=== PATIENT | female | born 1995 | race Hispanic/Latino ===

== ENCOUNTER 2025-01-11 21:36 | Emergency (ER) | payer SELFPAY ==
[~2025-01-11] VITALS: Ht 170.2 cm; Wt 78.9 kg
[2025-01-11] MEDS: LACTATED RINGERS 1000ML IV STA ×2 (21:59→22:23)
[2025-01-11 22:43] LABS: IMMATURE GRANULOCYTE ABSOLUTE 0.03 K/uL (0-1); NUCLEATED RED BLOOD CELLS 0.0 % (0.0-0.19); PLATELET COUNT (AUTO) 310 K/uL (130-400); RED BLOOD CELL COUNT(AUTO) 3.95 MIL/uL (4.00-5.50); RED CELL DISTRIBUTION WIDTH 12.0 % (11.0-15.5); WHITE BLOOD COUNT (AUTO) 8.4 K/uL (4.8-10.8)
[2025-01-11 22:45] LABS: APPEARANCE,URINE CLEAR (CLEAR); GLUCOSE, URINE (UA) NEGATIVE (NEGATIVE); LEUKOCYTE ESTERASE ,URINE 75 Leu/uL (NEGATIVE); NITRATE,URINE NEGATIVE (NEGATIVE); OCCULT BLOOD,URINE NEGATIVE (NEGATIVE)
[2025-01-11 22:46] LABS: ADD UA MICROSCOPIC YES
[2025-01-11 22:47] LABS: SQUAMOUS EPITHELIAL CELL,UR RARE /HPF (0-2)
[2025-01-11 22:48] LABS: HCG,QUALITATIVE URINE NEGATIVE (NEGATIVE)
[2025-01-11 22:49] LABS: RAPID GROUP A STREP negative (NEGATIVE)
[2025-01-11 22:54] LABS: CREATININE 0.6 mg/dL (0.5-1.0); GLOMERULAR FILTR. RATE CALC 124.0 mL/min (>90); GLUCOSE,RANDOM 100.0 mg/dL (70-105); SODIUM SERUM 140.0 mmol/L (136-145); UREA NITROGEN, BLOOD 8.0 mg/dL (7-18)
--- NOTE | 2025-01-11 22:58 | ERN ---
General Chief Complaint: Chest Pain Stated Complaint: CHEST PAIN Time Seen by MD: 21:38 Source: patient History of Present Illness Initial Comments 30-year-old female with a history of high blood pressure comes in with left chest pain as well as numbness and tingling in her right arm. It has been going on for a few days and is associated with the occasional episodes of high blood pressure. Patient reports no fevers or chills some nausea and diarrhea. There is a history of cardiac disease in her family and she is concerned and so comes in for an evaluation. Allergies: Coded Allergies: No Known Drug Allergies (Unverified Allergy, Unknown, 01/11/25) Past Medical History Past Medical History: Hypertension Past Surgical History: None Female( History) LMP: Jan 01, 2025 Constitutional: (-) chills, (-) diaphoresis, (-) fever, (-) malaise, (-) weakness, (-) other documentation EENTM: (-) eye pain, (-) blurred vision, (-) tearing, (-) double vision, (-) ear pain, (-) ear discharge, (-) nose pain, (-) nose congestion, (-) throat pain, (-) Throat swelling, (-) mouth pain, (-) tooth pain, (-) mouth swelling, (-) other documentation Respiratory: (-) cough, (-) orthopnea, (-) short of breath, (-) stridor, (-) wheezing, (-) other documentation Cardiovascular: (+) chest pain Gastrointestinal/Abdominal: (+) nausea, (+) diarrhea Genitourinary: (-) vaginal discharge, (-) vaginal bleeding, (-) dysuria, (-) frequency, (-) hematuria, (-) pain, (-) other documentation Musculoskeletal: (-) Neck pain, (-) back pain, (-) Flank Pain, (-) joint pain, (-) joint swelling, (-) muscle pain, (-) muscle stiffness, (-) gout, (-) other documentation Physical Exam Orientation: (+) alert Eye: bilateral eye normal inspection, bilateral eye PERRL, bilateral eye EOMI Ear, Nose, Throat: (+) hearing grossly normal, (+) normal ENT inspection, (+) moist mucous membraine, (+) normal pharynx Neck: (+) normal inspection, (+) supple, (+) full range of motion Respiratory: (+) chest non-tender, (+) lungs clear, (+) well ventilated Heart: (+) regular, (+) no gallop Vascular: (+) no edema, (+) normal peripheral pulse Gastrointestinal: (+) soft, (+) non-tender, (+) bowel sound present Back: (+) no CVA tenderness Results Laboratory and Microbiology Lab and Micro Result Laboratory Tests Test 01/11/25 21:55 01/11/25 22:22 01/11/25 22:30 Urine Color LIGHT-YELLOW (YELLOW) Urine Appearance CLEAR (CLEAR) Urine pH 5.5 (5.0-8.0) Urine Specific Wheeler 1.010 (1.001-1.031) Urine Protein NEGATIVE mg/dL (NEGATIVE) Urine Glucose (UA) NEGATIVE mg/dL (NEGATIVE) Urine Ketones NEGATIVE mg/dL (NEGATIVE) Urine Occult Blood NEGATIVE (NEGATIVE) Urine Nitrate NEGATIVE (NEGATIVE) Urine Bilirubin NEGATIVE mg/dL (NEGATIVE) Urine Urobilinogen 0.2 mg/dL (0.2-1.0) Urine Leukocyte Esterase 75 Ady/uL (NEGATIVE) H Urine RBC 2-5 /HPF (0-1) H Urine WBC 2-5 /HPF (0-1) H Urine Squamous Epithelial Cells RARE /HPF (0-2) Urine Bacteria FEW /HPF (None Seen) Urine HCG, Qualitative NEGATIVE (NEGATIVE) White Blood Count 8.4 K/uL (4.8-10.8) Red Blood Count 3.95 MIL/uL (4.00-5.50) L Hemoglobin 13.3 g/dL (12.0-16.0) Hematocrit 38.1 % (36-48) Mean Corpuscular Volume 96.5 fL (79-99) Mean Corpuscular Hemoglobin 33.7 pg (27.0-33.0) H Mean Corpuscular Hemoglobin Concent 34.9 g/dL (32.0-36.0) Red Cell Distribution Width 12.0 % (11.0-15.5) Platelet Count 310 K/uL (130-400) Mean Platelet Volume 8.7 fL (7.5-10.5) Immature Granulocyte % (Auto) 0.4 % (0-1) Neutrophils (%) (Auto) 55.9 % (40.0-77.0) Lymphocytes (%) (Auto) 34.2 % (21.0-51.0) Monocytes (%) (Auto) 6.6 % (3.0-13.0) Eosinophils (%) (Auto) 2.5 % (0.0-8.0) Basophils (%) (Auto) 0.4 % (0.0-5.0) Neutrophils # (Auto) 4.7 K/uL (1.8-7.7) Lymphocytes # (Auto) 2.9 K/uL (1.0-4.8) Monocytes # (Auto) 0.6 K/uL (0.1-1.0) Eosinophils # (Auto) 0.21 K/uL (0.00-0.70) Basophils # (Auto) 0.03 K/uL (0.00-0.20) Absolute Immature Granulocyte (auto 0.03 K/uL (0-1) Nucleated Red Blood Cells 0.0 % (0.0-0.19) Sodium Level 140 mmol/L (136-145) Potassium Level 4.3 mmol/L (3.5-5.1) Chloride Level 105 mmol/L (101-111) Carbon Dioxide Level 28 mmol/L (21-32) Blood Urea Nitrogen 8 mg/dL (7-18) Creatinine 0.6 mg/dL (0.5-1.0) Glomerular Filtration Rate Calc 124 mL/min (>90) Random Glucose 100 mg/dL (70-105) Total Calcium 8.9 mg/dL (8.5-10.1) Troponin I High Sensitivity < 4 ng/L (4-50) L Influenza Type A Antigen Negative For Type A Influenza Type B Antigen Negative For Type B SARS-CoV-2 Antigen (Rapid) PRESUMPTIVE NEGATIVE Group A Streptococcus Rapid negative (NEGATIVE) MDM MDM: Differential diagnosis: Dehydration, anxiety, muscle spasm, acute DE, dislocated rib Rationale: Tests considered and ordered secondary to shared decision making include: Previous outside records reviewed: Old ER visits. Risk of complication and/or morbidity or mortality of patient management: None Medications-Per medication reconciliation Need for hospitalization: Patient does meet criteria for hospitalization. Need for emergency major/minor surgery: No There are no social concerns with this patient. Prescription drug management Prescriptions will include symptomatic care Patient's prior external medical records from other ER visits were reviewed by me as indicated. Prior testing and results from previous visits were reviewed. Prior tests were taken into account with medical decision making and resource ut ilization, independent historian/historians were used to obtain complete medical history. I independently interpreted the test that were performed, results were reviewed by me and considered findings on radiology if ordered. Patient's CBC is normal patient's chemistry panel is normal including cardiac enzymes. UA does show some esterase activity. Nasal swabs are all negative. CT scan of abdomen is negative as well. Discussing the patient's symptoms she does think they happen more when her blood pressure is high. She is taking lisinopril that she got from [place]. ED Course Orders Procedure Category Date Status Time 12 Lead Ekg Tracing- EKG 01/11/25 Logged Technical 21:46 Lactated Ringers PHA 01/11/25 Complete 1000ml (Lactated 21:54 12 Lead Ekg Tracing- EKG 01/11/25 Logged Technical 22:13 Basic Metabolic Panel LAB 01/11/25 Complete 22:13 Cbc With Differential LAB 01/11/25 Complete 22:13 Covid19 (Sars Antigen LAB 01/11/25 Complete Rapid) 22:13 Influenza Type A & B, LAB 01/11/25 Complete Rapid 22:13 Rapid (Group A Strep) LAB 01/11/25 Complete 22:13 Urinalysis Profile LAB 01/11/25 Complete 22:13 ,Urine Test LAB 01/11/25 Complete 22:13 Troponin I High LAB 01/11/25 Complete Sensitivity 22:13 Lactated Ringers PHA 01/11/25 Complete 1000ml (Lactated 22:13 Culture Urine AURELIANO 01/11/25 In Process 22:46 Ketorolac PHA 01/12/25 Complete Tromethamine 30mg/Ml 00:30 Orphenadrine Citrate PHA 01/12/25 Complete (Norflex) 00:30 Morphine 2mg Syg PHA 01/12/25 Complete (Morphine 2mg Syg) 01:00 Ct Abdomen/Pelvis CT 01/12/25 Resulted W/Wo Contras 01:20 Iohexol (Omnipaque) PHA 01/12/25 Complete 01:55 Current Medications Medications (Trade) Dose Ordered Sig/Nemo Route PRN Reason Start Time Stop Time Status Last Admin Dose Admin Iohexol (Omnipaque) 35,000 mg STK-MED ONCE IV 01/12/25 01:55 01/12/25 01:55 DC Ketorolac Tromethamine (toRADol) 30 mg ONCE ONCE IVP 01/12/25 00:30 01/12/25 00:31 DC 01/12/25 00:29 Lactated Ringer's (Lactated Ringers 1000ml) 1,000 ml BOLUS STAT IV 01/11/25 21:54 01/11/25 21:56 DC 01/11/25 21:59 Lactated Ringer's (Lactated Ringers 1000ml) 1,000 ml BOLUS STAT IV 01/11/25 22:13 01/11/25 22:22 DC Morphine Sulfate (morPHINE 2MG SYG) 2 mg ONCE ONCE IVP 01/12/25 01:00 01/12/25 01:01 DC 01/12/25 01:15 Orphenadrine Citrate (Norflex) 60 mg ONCE ONCE IM 01/12/25 00:30 01/12/25 00:31 DC 01/12/25 01:15 Vital Signs Date Time Temp Pulse Resp B/P (MAP) Pulse Ox O2 Delivery O2 Flow Rate FiO2 01/12/25 00:00 98.4 85 16 123/88 98 Room Air* 0 21 01/11/25 22:30 98.4 98 16 118/75 100 Room Air* 0 21 01/11/25 21:38 98.2 98 18 144/93 98 Room Air 0 DX & DISP Disposition: Discharge Departure Impression: Primary Impression: Atypical chest pain Additional Impression: Urinary tract infection Condition: Stable Scripts Nitrofurantoin Monohyd/M-Cryst (Macrobid 100 mg Capsule) 100 Mg Capsule 1 CAP PO BID for 5 Days, #10 CAP 0 Refills Prov: KYM MCCORMICK MD 01/12/25 Ketorolac Tromethamine (Toradol) 10 Mg Tab 1 TAB PO Q6HPRN PRN for pain for 5 Days, #20 TAB 0 Refills Prov: KYM MCCORMICK MD 01/12/25 Cyclobenzaprine HCl (Flexeril) 10 Mg Tab 10 MG PO TID for muscle sstiffness, #14 TAB 0 Refills Prov: KYM MCCORMICK MD 01/12/25 Additional Instructions: You came in with atypical chest pain that may or may not have been driven by bouts of hypertension. A workup has been negative except for possible urinary tract infection. I have sent prescriptions for Macrobid for your UTI as well as the muscle relaxant and a pain medication. Please follow-up with a primary care physician so you can establish regular care for monitoring of her blood pressure as well as finding the best medications for controlling it. Please return if the chest pain becomes so debilitating that you can not breathe. Referrals: SELF,REFERRAL (PCP) KYM MCCORMICK MD Jan 11, 2025 22:58
[2025-01-11 22:59] LABS: COVID19 (SARS ANTIGEN RAPID) PRESUMPTIVE NEGATIVE (NEGATIVE)
[2025-01-11 23:00] LABS: INFLUENZA TYPE A Negative For Type A (NEGATIVE); INFLUENZA TYPE B Negative For Type B (NEGATIVE)
[2025-01-12] MEDS: ORPHENADRINE 60MG/2ML IM ONE (01:15)
[2025-01-12] MEDS ORDERED: IOHEXOL 350 MG/ML 100ML INFUS..BTL IV ONE (01:55)
--- NOTE | 2025-01-12 02:48 | HMCIMG ---
EXAM: CT Abdomen and Pelvis without and with IV contrast. CLINICAL HISTORY: Nephrolithiasis. TECHNIQUE: Post-contrast thin collimated axial CT images of the abdomen and pelvis were obtained, with sagittal and coronal reformatted images also submitted. A CT scan is done according to ALARA (As Low As Reasonably Achievable). COMPARISON: None. FINDINGS: Unremarkable visualised lung parenchyma. There is no focal abnormality appreciated within the liver, gallbladder, pancreas, spleen, adrenals, or kidneys. 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 There is no obvious bowel wall thickening. Bowel loops are normal in calibre without evidence of obstruction or ileus. The appendix is unremarkable. There is no abnormality within the urinary bladder. Unremarkable uterus. There is an involuting right ovarian cyst. Trace free fluid in the cul-de-sac. No lymphadenopathy. No pneumoperitoneum. No gross abnormality in the abdominal vessels. There is no acute osseous abnormality. IMPRESSIONS: No acute process in the abdomen or pelvis. No renal, ureteric, or bladder calculus. 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 Involuting the right ovarian cyst. Trace free fluid in the cul-de-sac. /Elbert
[2025-01-12] MEDS ORDERED: CYCL10TA16 PO (03:28)
[2025-01-12] MEDS ORDERED: KETO10 PO (03:28)
[2025-01-12] MEDS ORDERED: NITR100C4 PO (03:28)
[2025-01-12 03:39] VITALS: BP 139/80; PULSE 68; RESP 17; TEMP 98.4; O2SAT 99
--- NOTE | 2025-01-12 05:52 | EKG ---
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
== END 2025-01-12 03:41 | disposition home or self-care (01) ==
LOC: EDH 21:36
DX: R07.89 Other chest pain (principal); N39.0 Urinary tract infection, site not specified; I10 Essential (primary) hypertension; Z20.822 Contact with and (suspected) exposure to COVID-19
CPT/HCPCS: 99285; 96361; 87426; 84484; 80048; 85025; 87086; 87880; 87804 ×2; 81001; 81025; 36415; 93005; 74178; 96374; 96375; 96372; J7120; J1885; J2270; Q9967; J2360